=== PATIENT | female | born 1975 | race Caucasian/White ===

== ENCOUNTER 2016-04-04 09:48 | Emergency (ER) | payer BC, OTHER ==
[~2016-04-04] VITALS: Ht 170.2 cm; Wt 76.3 kg
[2016-04-04 09:52] VITALS: TEMP 36.6; Ht 170.2 cm; Wt 76.3 kg
--- NOTE | 2016-04-04 10:22 | EMERGENCY ROOM VISIT NOTE ---
History Report prepared by Shraddha: Aaron Kirkpatrick Under the Supervision of: Dr. Tee Simpson M.D. First contact with patient: 10:07 Chief Complaint: NECK PAIN Stated Complaint: NECK PAIN AFTER FALL History of Present Illness The patient is a 41 year old female who presents to the Emergency Room with complaints of persistent neck pain that started 3 days ago after a fall. The patient was taking her children sledding, and she was showing her children how to flip over a bar. She did not intent to flip over the bar, but she did, and landed straight on her head. All the weight hit her head and into her neck and shoulders. She had sudden neck and shoulder pain afterwards. She got back up and was a bit dizzy. The patient's chest pain started after the fall as well, in addition to shortness of breath. She says she cannot get deep enough breaths , and it hurts to breath. She denies any loss of consciousness, headaches, abdominal pain, numbness, weakness, or bladder or bowel issues. The patient is not on any blood thinners. She has not been feeling depressed lately and denies any thoughts of hurting herself. She has no chance of . The patient has no trouble ambulating. Source of History: patient Onset: 3 days ago Position: neck (pain) Timing: other (persistent) Associated Symptoms: + SOB, + chest pain, No LOC, No abdominal pain, No headache, No numbness, No weakness Note: Associated symptoms: A bit dizzy after fall. Hurts to breathe. Denies bladder or bowel issues. Review of Systems See HPI for pertinent positives & negatives. A total of 10 systems reviewed and were otherwise negative. Past Medical & Surgical Medical Problems: (1) Alcoholism (2) Depression (3) Previous Old medical records were reviewed. Nurse's notes were reviewed and I agree with. Family History FH: heart disease FHx: cancer Hypertension Stroke Social History Smoking Status: Never Smoker Alcohol Use: occasionally Drug Use: none Marital Status: Housing Status: lives with family Occupation Status: employed Current/Historical Medications Scheduled Bupropion (Wellbutrin Sr), 150 MG PO DAILY Sertraline (Zoloft), 100 MG PO DAILY Scheduled PRN Oxycodone Immediate Rel Tab (Roxicodone Ir), 1-2 TAB PO Q4H PRN for Severe Pain Allergies Coded Allergies: POLLEN (Verified Allergy, Unknown, UNKNOWN, 09/09/14) Physical Exam Vital Signs Date Time Temp Pulse Resp B/P Pulse Ox O2 Delivery O2 Flow Rate FiO2 04/04/16 13:50 89 18 127/88 100 04/04/16 12:14 86 18 130/93 98 Room Air 04/04/16 09:52 36.6 87 16 165/113 96 Room Air Physical Exam General: Well developed well nourished non ill-appearing middle-aged female in no acute distress wearing cervical collar, breathing comfortably on room air. Normal speech HEENT: Normal cephalic atraumatic. Pupils are equal round and reactive to light. Extraocular movements are intact. Oropharynx is pink with moist mucous membranes. No swelling of the mouth lips or tongue. Neck: Tender to palpation in posterior neck and into upper thoracic area. Chest: Clear to auscultation bilaterally. No wheezes or rhonchi. No increased work of breathing. Heart: regular rate and rhythm. Abdomen: Soft nontender, nondistended without rebound guarding or rigidity. Extremities: No cyanosis clubbing or edema. No calf tenderness or assymetry Spine/Back. Non tender to palpation. No CVA tenderness Skin: Good turgor without rashes. Neurologic exam: Cranial nerves two through 12 are intact. Motor and sensation are intact and symmetrical throughout. Medical Decision & Procedures ER Provider Diagnostic Interpretation: X ray results as stated below per my interpretation and radiologist interpretation. Other radiology results as stated below per my review and radiologist interpretation: CT HEAD WITHOUT CONTRAST (CT) CLINICAL HISTORY: Head pain status post trauma COMPARISON STUDY: No previous studies for comparison. TECHNIQUE: Axial CT of the brain is performed from the vertex to the skull base. IV contrast was not administered for this examination. CT DOSE: 638.56 mGycm FINDINGS: No intra or extra-axial mass lesions are visualized. There is no CT evidence of acute cortical infarction. There is no evidence of midline shift. There is no acute hemorrhage. No calvarial fractures are visualized. There is no evidence of pathologic ventricular dilatation. There is no evidence of acute sinusitis IMPRESSION: No acute intracranial findings Electronically signed by: Lamberto Neumann M.D. 04/04/2016 11:07 AM Dictated Date/Time: 04/04/2016 11:06 AM CHEST 2 VIEWS ROUTINE HISTORY: Atypical chest pain. Fall. COMPARISON: None. FINDINGS: The lungs are clear. Cardiac silhouette is normal in size. No pleural effusions. No pneumothorax. IMPRESSION: No acute process. Electronically signed by: Lukasz Montgomery M.D. 04/04/2016 11:51 AM Dictated Date/Time: 04/04/2016 11:[address] OF THE CERVICAL SPINE CLINICAL HISTORY: Neck pain status post trauma COMPARISON STUDY: No previous studies for comparison. CT DOSE: 411.07 mGycm TECHNIQUE: CT scan of the cervical spine was performed from the skull base to the thoracic inlet. Images are reviewed in the axial, sagittal, and coronal planes. IV contrast was not administered for this examination. FINDINGS: The visualized portions of the lung apices reveal no evidence of pneumothorax. The prevertebral soft tissues are normal. No fractures or subluxations are visualized. There are degenerative changes most pronounced the C5-6 level. IMPRESSION: No evidence of acute fracture or traumatic subluxation. Electronically signed by: Lamberto Neumann M.D. 04/04/2016 11:09 AM Dictated Date/Time: 04/04/2016 11:08 AM ED Course 1008: Past medical records reviewed. The patient was evaluated in room A3, and a complete history and physical examination were performed. 1337: I reevaluated the patient and she is resting comfortably. The patient verbally expressed understanding and agreement of the treatment plan. The patient will be discharged. Medical Decision Differential diagnoses include: cervical fracture, thoracic injury, intracranial hemorrhage, pneumothorax, concussion. This patient comes in as described above. She was placed in room A3. She is here for treatment and evaluation of neck pain after suffering an injury a couple days ago. This was more of an axial load. She has no neurologic deficit. She has pain with movement c-collar was placed in triage. She has some mild pain in her extending the chest with breathing only. I did a CAT scan of her head and neck as well as a chest x-ray. There is no evidence of any acute abnormalities. There is no evidence of skull fracture or cervical spine fracture. On the chest xray, there is no pneumothorax or any thoracic injury seen. Most likely she has a cervical strain and contusion. She will use ibuprofen for pain. For breakthrough pain, she can use OxyIR 5 mg, one or 2 pills every 4-6 hours as needed. She has warned that this can make her drowsy and do not take before drinking, driving, working. She should rest and return if: increasing pain, numbness or weakness, worsening symptoms, any new problems or concerns. Follow doctor Thursday for recheck. Impression Primary Impression: Cervical strain Additional Impressions: Neck pain Concussion Scribe Attestation The scribe's documentation has been prepared under my direction and personally reviewed by me in its entirety. I confirm that the note above accurately reflects all work, treatment, procedures, and medical decision making performed by me. Departure Information Dispostion Home / Self-Care Prescriptions Oxycodone Immediate Rel Tab (ROXICODONE IR) 5 Mg Tab 1-2 TAB PO Q4H Y for Severe Pain, #14 TAB Prov: Tee Simpson M.D. 04/04/16 Referrals No Doctor, Assigned (PCP) Forms HOME CARE DOCUMENTATION FORM, IMPORTANT VISIT INFORMATION, WORK / SCHOOL INSTRUCTIONS Patient Instructions My [facility] Additional Instructions Rest. Drink plenty of fluids. Use ibuprofen 600 mg every 6 hours, take with food. For more severe pain, use OxyIR 5milligrams, one or 2 pills every 4-6 as needed OxyIR may make you drowsy do not take before drinking, driving, working Return if: Increasing pain, worsening of symptoms, fever chills, any new problems or concerns. Follow-up with you doctor Thursday for recheck if not better or return earlier over the weekend if symptoms worsen in anyway. Problem Qualifiers
[2016-04-04] MEDS ORDERED: BUPR-79 PO (10:26)
[2016-04-04] MEDS ORDERED: SERT-234 PO (10:26)
--- NOTE | 2016-04-04 11:09 | DIAGNOSTIC IMAGING REPORT ---
CT HEAD WITHOUT CONTRAST (CT) CLINICAL HISTORY: Head pain status post trauma COMPARISON STUDY: No previous studies for comparison. TECHNIQUE: Axial CT of the brain is performed from the vertex to the skull base. IV contrast was not administered for this examination. CT DOSE: 638.56 mGycm FINDINGS: No intra or extra-axial mass lesions are visualized. There is no CT evidence of acute cortical infarction. There is no evidence of midline shift. There is no acute hemorrhage. No calvarial fractures are visualized. There is no evidence of pathologic ventricular dilatation. There is no evidence of acute sinusitis IMPRESSION: No acute intracranial findings Electronically signed by: Lamberto Neumann M.D. 04/04/2016 11:07 AM Dictated Date/Time: 04/04/2016 11:06 AM
--- NOTE | 2016-04-04 11:10 | DIAGNOSTIC IMAGING REPORT ---
CT OF THE CERVICAL SPINE CLINICAL HISTORY: Neck pain status post trauma COMPARISON STUDY: No previous studies for comparison. CT DOSE: 411.07 mGycm TECHNIQUE: CT scan of the cervical spine was performed from the skull base to the thoracic inlet. Images are reviewed in the axial, sagittal, and coronal planes. IV contrast was not administered for this examination. FINDINGS: The visualized portions of the lung apices reveal no evidence of pneumothorax. The prevertebral soft tissues are normal. No fractures or subluxations are visualized. There are degenerative changes most pronounced the C5-6 level. IMPRESSION: No evidence of acute fracture or traumatic subluxation. Electronically signed by: Lamberto Neumann M.D. 04/04/2016 11:09 AM Dictated Date/Time: 04/04/2016 11:08 AM
--- NOTE | 2016-04-04 11:52 | DIAGNOSTIC IMAGING REPORT ---
CHEST 2 VIEWS ROUTINE HISTORY: Atypical chest pain. Fall. COMPARISON: None. FINDINGS: The lungs are clear. Cardiac silhouette is normal in size. No pleural effusions. No pneumothorax. IMPRESSION: No acute process. Electronically signed by: Lukasz Montgomery M.D. 04/04/2016 11:51 AM Dictated Date/Time: 04/04/2016 11:50 AM
[2016-04-04] MEDS ORDERED: OXYC1TAB3 PO (13:41)
[2016-04-04 13:50] VITALS: BP 127/88; PULSE 89; O2SAT 100
== END 2016-04-04 13:52 | disposition home or self-care (01) ==
LOC: C.EDB 09:49 → C.EDA 13:52
DX: S16.1XXA Strain of muscle, fascia and tendon at neck level, initial encounter (principal); S06.0X0A Concussion without loss of consciousness, initial encounter; W17.89XA Other fall from one level to another, initial encounter; Y93.89 Activity, other specified; Y99.8 Other external cause status; F32.9 Major depressive disorder, single episode, unspecified; Z82.3 Family history of stroke; Z82.49 Family history of ischemic heart disease and other diseases of the circulatory system; Z79.899 Other long term (current) drug therapy